=== PATIENT | female | born 1975 | race Caucasian/White ===

== ENCOUNTER 2020-07-21 16:10 | Outpatient (CLI) | payer OTHER, SELFPAY ==
--- NOTE | 2020-07-21 | XR_ITS ---
WS: [id number] EXAM: XR lumbar spine 2-3V* [id number] DATE OF EXAMINATION: 07/21/2020, 1631 hours COMPARISON: None. HISTORY: 44 years old with low back pain and sciatica for the last 3 weeks. FINDINGS: Lower thoracic and lumbar vertebrae are of normal height. There are 6 nonrib-bearing vertebrae. The v ertebrae labeled as L6 appears to be a transitional vertebrae partially sacralized on the left. There is narrowing of the disc space at L5-transitional L6 level with vacuum phenomena. Posteriorly bilate ral L5 pars interarticularis defects are demonstrated with a grade 1 anterolisthesis of L5 on transit ional L6. Other disc levels are fairly normal in appearance. All pedicles are appreciated on the AP r adiograph. No paraspinal soft tissue abnormality is seen. Slight arthritis within both SI joints. XR/XR lumbar spine 2-3V* [id number] IMPRESSION: 6 NONRIB-BEARING VERTEBRAE. VERTEBRAE LABELED L6 IS CONSIDERED A TRANSITIONA L VERTEBRAE WITH PARTIAL SACRALIZATION ON THE LEFT WITH PSEUDOARTHROSIS OF THE LEFT L6 TRANSVERSE PROCESS WITH THE LEFT S1 ALA. BILATERAL L5 PARS INTERARTICULARIS DEFECTS DEMONSTRATED WITH GRADE 1 ANTEROLIST HESIS OF L5 ON TRANSITIONAL L6 WITH DEGENERATIVE SPONDYLOSIS AND VACUUM PHENOME NON AT THIS LEVEL. NO ACUTE BONY ABNORMALITY
== END 2020-07-21 16:11 | disposition home or self-care (01) ==
LOC: RAD 16:16
PROVIDERS: PCP Nurse Practitioner Family; Visit Provider Nurse Practitioner Family
DX: M54.30 Sciatica, unspecified side (principal); M54.5 Low back pain; M47.816 Spondylosis without myelopathy or radiculopathy, lumbar region; Q76.49 Other congenital malformations of spine, not associated with scoliosis
CPT/HCPCS: 72100

== ENCOUNTER 2020-08-16 06:52 | Outpatient (CLI) | payer OTHER, SELFPAY ==
--- NOTE | 2020-08-16 | MR_ITS ---
WS: [id number] MRI LUMBAR SPINE NONCONTRAST HISTORY: BACK PAIN COMPARISON: None available. TECHNIQUE: Sagittal and axial multisequence imaging is submitted. Increase in the lumbar lordosis. L4 anterolisthesis by 4.2 mm. No fractures. Mild disc space narrowin g and desiccation at L4-5. Conus terminates normally at T12-L1. L1-L2: Normal. L2-L3: Mild ligamentum flavum hypertrophy and facet arthritis. L3-L4: Small amount of fluid in the facet joints bilaterally. No stenosis. L4-L5: Mild annular disc bulging with moderate facet and ligamentum flavum hypertrophy. Encroachment onto the posterior lateral thecal sac bilaterally due to facet disease. There is significant encroach ment and narrowing of the posterior thecal sac at the mid L4 level. Nerve roots are being compressed in the posterior thecal sac with no foraminal stenosis. L5-S1: Mild disc bulging. No stenosis. Visualized retroperitoneum is negative. MR/MR lumbar spine wo con* [id number] IMPRESSION: 1. Central canal stenosis is mild at the L4-5 level. There is a focal narrowin g of the posterior thecal sac with mild increased entrapment of the nerve roots at the L4-5 level. Posterior thecal sac entrapment is causing a mild figure 8 appearance. The entrapment of the thecal sac and nerve root encroachment is pre dominantly due to facet joint arthritis extending centrally. 2. L4 anterolisthesis by 4.2 mm with bilateral facet joint arthritis.
== END 2020-08-16 06:53 | disposition home or self-care (01) ==
LOC: RADSHAW 06:55
PROVIDERS: PCP Nurse Practitioner Family; Visit Provider Nurse Practitioner Family
DX: M54.9 Dorsalgia, unspecified (principal); M48.061 Spinal stenosis, lumbar region without neurogenic claudication; M46.96 Unspecified inflammatory spondylopathy, lumbar region
CPT/HCPCS: 72148

== ENCOUNTER 2020-09-11 12:54 | Outpatient (CLI) | payer OTHER, SELFPAY ==
--- NOTE | 2020-09-11 13:00 | XR_ITS ---
WS: [id number] LUMBAR SPINE FLEXION AND EXTENSION TECHNIQUE: 3 views of the lumbar spine: Lateral neutral, flexion, and extension views. CLINICAL INFORMATION: BACK PAIN COMPARISON: None. FINDINGS: S1 is partially lumbarized. Grade 1-2 anterolisthesis L5 on S1 measuring 13 mm in neutral. This is not significantly changed on f lexion-extension. Chronic pars defects at this level. Osteopenia. XR/XR lumbar spine f/e only [id number] IMPRESSION: Grade 1-2 anterolisthesis L5 on S1 measuring 13 mm. No significant instability. Bilateral pars defects.
== END 2020-09-11 12:55 | disposition home or self-care (01) ==
LOC: RADWPI 12:58
PROVIDERS: PCP Nurse Practitioner Family; Visit Provider Nurse Practitioner Family
DX: M54.5 Low back pain (principal)
CPT/HCPCS: 72120

== ENCOUNTER → 2020-09-27 07:58 | Outpatient (BNVA) | payer OTHER, SELFPAY | PROVIDERS: PCP Nurse Practitioner Family; Visit Provider Licensed Practical Nurse | DX: M51.17 Intervertebral disc disorders with radiculopathy, lumbosacral region (principal); M43.17 Spondylolisthesis, lumbosacral region; M48.062 Spinal stenosis, lumbar region with neurogenic claudication; M47.816 Spondylosis without myelopathy or radiculopathy, lumbar region; E66.01 Morbid (severe) obesity due to excess calories; Z68.42 Body mass index [BMI] 45.0-49.9, adult | CPT/HCPCS: 99204 ==

== ENCOUNTER 2020-10-06 08:35 | Outpatient (CLI) | payer OTHER, SELFPAY ==
--- NOTE | 2020-10-06 09:00 | IR_ITS ---
WS: [id number] Lumbar myelogram, 10/06/2020 Clinical Data: Low back pain Comparison: Lateral lumbar spine, 09/11/2020. Fluoroscopy time: 2.9 minutes. Findings: With the usual technique, a 22 gauge spinal needle was inserted into the lumbar subarachnoid space at L2-L3. The contrast material was hand injected. Approximately 12.5 mL of 240 mg/mL Omnipaque entered the lum bar subarachnoid space. No intramedullary, intradural or extradural defects could be seen. The patien t was placed into the head down position and the contrast material flowed normally into the lower tho racic subarachnoid space. Flexion, extension and neutral lateral, AP and both oblique views demonstrated no limitations of damaris on or increase in subluxation. Subluxation at L4-L5 was fixed at 1.1cm. Bilateral spondylolysis at L4 -L5 is seen. There are no compression fractures. IR/IR myelogram sp lumbar [id number] Impression: 1. Negative lumbar myelogram. 2. No change in L4-L5 spondylolisthesis of 1.1 cm on flexion or extension. 3. Negative for limitation of motion on flexion or extension.
[2020-10-06] MEDS: iohexol 240 mg/mL 50 mL Btl INTRATHECA (10:26)
--- NOTE | 2020-10-06 11:30 | CT_ITS ---
WS: [id number] CT of the lumbar spine, additional two-dimensional coronal and sagittal imaging was obtained. 10/06/20 Clinical Data: Low back pain Comparison: MRI lumbar spine, 2019. DLP: 1760.16 mGy-centimeters All CT scans at [facility] use at least one of these dose optimization techniques: automat ed exposure control; mA and/or kV adjustment per patient size (includes targeted exams where dose is matched to clinical indication); or iterative reconstruction. Findings: Contrast material from the myelogram fills the lumbar subarachnoid space. There is a 0.4 cm subluxation of L4 on L5 with degenerative disc disease at L4-L5. There is a bilateral spondylolysis at L4-L5. No intramedullary, intradural or extradural defects are seen. T12-L1: No canal stenosis, disc bulge or foraminal narrowing is seen. L1-L2: No canal stenosis, disc bulge or foraminal narrowing is seen. L2-L3: No canal stenosis, disc bulge or foraminal narrowing is seen. L3-L4: No canal stenosis, disc bulge or foraminal narrowing is seen. L4-L5: There is a bulging disc at L4-L5 with no central canal stenosis. There is moderate facet joint arthritis. L5-S1: No canal stenosis, disc bulge or foraminal narrowing is seen. CT/CT lumbar spine w con [id number] Impression: 1. 0.4 cm subluxation of L4 on L5 with degenerative disc disease at L4-L5. 2. Bulging disc at L4-L5 with no central canal stenosis but moderate facet join t arthritis.
== END 2020-10-06 08:36 | disposition home or self-care (01) ==
LOC: RADWPI 08:40
PROVIDERS: PCP Nurse Practitioner Family; Visit Provider Licensed Practical Nurse
DX: S33.140A Subluxation of L4/L5 lumbar vertebra, initial encounter (principal); X58.XXXA Exposure to other specified factors, initial encounter
CPT/HCPCS: 62304; 72120; 72132; Q9966

== ENCOUNTER 2020-10-06 21:53 | Emergency (ER) | payer OTHER, SELFPAY ==
[2020-10-06 22:04] VITALS: BP 152/95; PULSE 98; RESP 24; TEMP 36.2; O2SAT 98; BMI 44.6
--- NOTE | 2020-10-06 22:28 | CTR_ITS ---
PROCEDURE INFORMATION: Exam: CT Head Without Contrast Exam date and time: 10/06/2020 10:51 PM Age: 45 years old Clinical indication: Pain; Headache not specified; Patient HX: PT had myleogram today, [place] headache TECHNIQUE: Imaging protocol: Computed tomography of the head without contrast. Radiation optimization: All CT scans at this facility use at least one of these dose optimization techniques: automated exposure control; mA and/or kV adjustment per patient size (includes targeted exams where dose is matched to clinical indication); or iterative reconstruction. COMPARISON: No relevant prior studies available. RADIATION DOSE METRICS: Total DLP (mGy-cm): 867.86 FINDINGS: Brain: Left frontal high convexity 2.2 cm extra-axial mass with minimal mass effect on the adjacent brain parenchyma consistent with a meningioma. Cerebral ventricles: No ventriculomegaly. Bones/joints: Unremarkable. No acute fracture. Paranasal sinuses: Visualized sinuses are unremarkable. No fluid levels. Mastoid air cells: Visualized mastoid air cells are well aerated. Soft tissues: Unremarkable. CT/CT head wo con* [id number] IMPRESSION: 1. Negative for intracranial hemorrhage. 2. Left frontal high convexity 2.2 cm extra-axial mass with minimal mass effect on the adjacent brain parenchyma consistent with a meningioma. Radiation Dose CTDIVOL = (mGy): DLP = 867.86 (mGy-cm)
--- NOTE | 2020-10-06 22:37 | ED_ITS ---
HPI - Headache General: Chief Complaint: Headache Stated Complaint: lower back pain Time Seen by Provider: 10/06/20 22:14 Source: patient Mode of arrival: ambulatory Limitations: no limitations History of Present Illness: HPI Narrative: Shari is a 45-year-old female who comes in complaining of a headache. Patient states that she had a myelogram performed today at the [facility] to evaluate her chronic back pain. She states that the headache began after the myelogram and has progressively gotten worse since. She denies any fevers or chills. She does have photophobia and nausea. She states anytime she gets up her headache gets significantly worse and when she lays down and rest it improves greatly. Patient is concerned that she may have a post tap headache. Because of this and the uncontrolled pain she is come here to the hospital for relief. Patient states that she cannot get up even to walk to the bathroom without having severe pain to the point she feels like she may collapse. Patient states that she has to have something for her headache as this is intractable. Associated symptoms: Deny chest pain, confusion, diaphoresis, fever(s), lightheadedness, malaise, nausea, pre-syncope, rash, syncope or vomiting Review of Systems Const: Denies: fever(s), chills, body aches, fatigue, malaise or diaphoresis Eyes: Denies: change in vision, blurry vision, photophobia, eye discomfort, eye discharge, eye redness or yellow eyes ENMT: Denies: throat pain, odynophagia, hoarseness, swelling of lips/tongue, ear or mastoid pain, ear discharge, change in hearing or nasal discharge Card: Denies: chest pain, palpitations, irregular heart rhythm, edema, lightheadedness, syncope, pre-syncope, dyspnea on exertion or orthopnea Resp: Denies: dyspnea, productive cough, non-productive cough, wheezing, hemoptysis or chest congestion GI: Denies: abdominal pain, nausea, vomiting, hematemesis, coffee ground emesis, heartburn, diarrhea, constipation, GI cramping, hematochezia or melena : Denies: flank pain, dysuria, urinary frequency, urinary urgency or hematu pito Musc: Denies: neck pain, back pain, extremity pain, extremity swelling, joint pain, joint swelling, joint redness, joint warmth or joint stiffness Skin/Breast: Denies: rash, pruritus, erythema, skin pain or skin tenderness Neuro: Reports: headache(s); Denies: numbness in extremities, weakness in extremities, sensory changes, lack of coordination, difficulty walking, dizziness, vertigo, confusion, Slurred speech present or seizure-like activity Shola/Lymph: Denies: easy bruising, easy bleeding, petechiae, purpura or enlarged lymph nodes All/Imm: Denies: urticaria, throat swelling, tongue swelling, facial swelling or acute wheezing PFSH ED PFSH: Medical History 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 Alive Daughter Diabetes Type 1 diabetes. Age 11 Son Diabetes Type 1 diabetes. Age 17 Social History Smoking and tobacco status: former smoker Alcohol intake: never Household members: spouse and children Housing: House Marital status: service: No Current occupational status: employed Current occupation: [employer] History of recent travel: No Physical Exam Const: COMMON NORMALS: no acute distress, patient oriented x3, no limitations and alert GENERAL APPEARANCE: cooperative HENMT: COMMON NORMALS: normocephalic, atraumatic, external ears normal, EAC's normal and Normal external nose present HEAD & SCALP: normal to inspection, normocephalic and atraumatic FACE & SINUS: normal facial exam and face symmetric NOSE: Normal external nose present and Normal nares present EXTERNAL EAR: Yes external ears normal EXTERNAL AUDITORY CANAL: EAC's normal MOUTH: Normal oral and palatal mucosa present, lip normal and tongue normal Eye: COMMON NORMALS: Equal, round and reactive pupils present and conjunctivae normal GENERAL EYE: appearance normal, both eyes and all related structures ALIGNMENT: Yes alignment normal PERIORBITAL: periorbital findings normal EYELID: eyelids normal CONJUNCTIVA: Yes conjunctivae normal SCLERA: sclerae normal PUPIL: Yes Equal, round and reactive pupils present Neck/C-Spine: COMMON NORMALS: full ROM, no lymphadenopathy, supple, no meningeal signs and no JVD GENERAL: Yes normal visual inspection and Yes trachea midline Chest: COMMONS NORMALS: normal inspection of the chest and normal palpation of entire chest wall Resp: COMMON NORMALS: normal respiratory effort, No retractions, No use of accessory muscles and clear to auscultation bilaterally EFFORT & INSPECTION: Yes able to speak in complete sentences and Yes symmetric chest movement AUSCULTATION: clear to auscultation bilaterally, no crackles, no rales, no rhonchi and no wheezes Cardio: COMMON NORMALS: no JVD, regular rate, regular rhythm, S1 normal heart sound present and S2 normal heart sound present RATE: regular rate RHYTHM: regular rhythm HEART SOUNDS: S1 normal heart sound present, S2 normal heart sound present, no click, no gallops, no murmurs and no rubs GI: COMMON NORMALS: Soft to palpation and No hepatosplenomegaly present PALPATION: Yes Soft to palpation, No Tenderness to palpation present (GI), No Guarding due to palpation present (GI), No Rigid due to palpation, Yes No hepatosplenomegaly present, No Hernia present, No Palpable mass present and No Pulsatile mass present : COMMON NORMALS: Yes no CVA tenderness BLADDER/KIDNEY EXAM: Yes no CVA tenderness EXTERNAL FEMALE EXAM: No Hernia present Back/Pelvis: COMMON NORMALS: no CVA tenderness, thoracic and lumbar spine normal to inspection, no thoracic nor lumbar tenderness and thoraco-lumbar ROM normal Extremity: COMMON NORMALS: normal to inspection, full ROM, capillary refill normal, no joint enlargement, no clubbing, cyanosis or edema and no calf tenderness Neuro: COMMON NORMALS: patient oriented x3, CN's II-XII intact bilaterally, moves all extremities, no focal motor deficits and no sensory deficits noted SENSORIUM/ORIENTATION: Yes alert MENINGEAL SIGNS: Yes no meningeal signs SPEECH: speech normal Psych: COMMON NORMALS: mental status grossly normal, Normal thought process present, cooperative, normal affect, speech normal and activity/motor behavior normal SPEECH: Yes normal speech THOUGHT PROCESS: Normal thought process present Skin: COMMON NORMALS: no rashes or lesions noted, turgor normal, no jaundice, no petechiae and no mottling GENERAL SKIN EXAM: no rashes or lesions noted and turgor normal Course Vital Signs: Vital signs: Vital Signs Temperature 97.2 F L 10/06/20 22:04 Pulse Rate 69 10/07/20 02:00 Respiratory Rate 17 10/07/20 02:00 Blood Pressure 117/72 10/07/20 02:00 Pulse Oximetry 97 10/07/20 02:00 MDM - Headache MDM Narrative: Medical decision making narrative: 0045 -Case reviewed with Dr. Isaac and the on-call [employer] OPERATOR. They will come to evaluate the patient for possible blood patch. 0130 -blood patch performed by Dr. Isaac. She states the patient will need to remain flat for 1 hour and then can be discharged home. 0230 -patient is feeling better and is ready to go home. She is very appreciative of her care but does understand if her symptoms return she will need to return to the ER. Lab Data: Labs: Lab Results 10/06/20 10/06/20 10/06/20 Range/Units 22:06 22:06 22:06 WBC 5.3 (4.0-10.0) 10^3/ uL RBC 4.70 (4.1-5.3) 10^6/u L Hgb 13.6 (11.5-15.3) g/dL Hct 41.3 (37.0-47.0) % MCV 87.9 (81-99) fL MCH 28.9 (28.0-34.0) pg MCHC 32.9 (30.0-36.0) g/dL RDW 12.5 (12.1-15.1) % Plt Count 257 (130-400) 10^3/c mm MPV 10.8 H (7.4-10.4) fL Neut % (Auto) 54.8 % Lymph % (Auto) 32.1 % [place] % (Auto) 10.4 % Eos % (Auto) 1.9 % Baso % (Auto) 0.6 % Neut # (Auto) 2.91 (1.8-7.7) 10^3/u L Lymph # (Auto) 1.7 (0.8-4.8) 10^3/u L [place] # (Auto) 0.6 (0.2-0.9) 10^3/u L Eos # (Auto) 0.1 (0.0-0.8) 10^3/u L Baso # (Auto) 0.0 (0.0-0.1) 10^3/u L Nucleated RBC % (a uto) 0 % Nucleated RBCs # 0.0 /100WBC PT 12.40 (12.1-14.9) SECO NDS INR 0.90 (0.8-1.2) APTT 27.8 (23.9-36.7) SECO NDS Sodium 144 (136-145) mmol/L Potassium 3.0 L (3.5-5.1) mmol/L Chloride 105 (98-107) mmol/L Carbon Dioxide 30 H (22-29) mmol/L Anion Gap 12.0 (5-19) BUN 13 (6-20) mg/dL Creatinine 0.9 (0.5-0.9) mg/dL GFR Calculation 68.3 L (90-130) mL/min Glucose 109 (65-115) mg/dL Calculated Osmolal ity 299 H (285-295) mOsm/k g Calcium 8.6 (8.5-10.5) mg/dL Magnesium (1.7-2.3) mg/dL Total Bilirubin 0.4 (0.15-1.2) mg/dL AST 17 (0-32) U/L ALT 23 (0-33) U/L Alkaline Phosphata se 64 (35-105) IU/L Total Protein 6.1 L (6.6-8.7) g/dL Albumin 3.7 (3.5-5.2) g/dL Globulin 2.4 (1.3-4.6) g/dL Urine Color (Yellow) Urine Appearance (CLEAR) Urine pH (5-7) Ur Specific Gravit y (1.005-1.030) Urine Protein (Negative) Urine Glucose (UA) (Normal) Urine Ketones (Negative) Urine Blood (Negative) Urine Nitrate (Negative) Urine Bilirubin (Negative) Prot Sulfosalicyli c Acd (Negative) Urine Urobilinogen (Negative) mg/dL Ur Leukocyte Isela ase (Negative) 10/06/20 10/07/20 Range/Units 22:06 00:00 WBC (4.0-10.0) 10^3/ uL RBC (4.1-5.3) 10^6/u L Hgb (11.5-15.3) g/dL Hct (37.0-47.0) % MCV (81-99) fL MCH (28.0-34.0) pg MCHC (30.0-36.0) g/dL RDW (12.1-15.1) % Plt Count (130-400) 10^3/c mm MPV (7.4-10.4) fL Neut % (Auto) % Lymph % (Auto) % [place] % (Auto) % Eos % (Auto) % Baso % (Auto) % Neut # (Auto) (1.8-7.7) 10^3/u L Lymph # (Auto) (0.8-4.8) 10^3/u L [place] # (Auto) (0.2-0.9) 10^3/u L Eos # (Auto) (0.0-0.8) 10^3/u L Baso # (Auto) (0.0-0.1) 10^3/u L Nucleated RBC % (a uto) % Nucleated RBCs # /100WBC PT (12.1-14.9) SECO NDS INR (0.8-1.2) APTT (23.9-36.7) SECO NDS Sodium (136-145) mmol/L Potassium (3.5-5.1) mmol/L Chloride (98-107) mmol/L Carbon Dioxide (22-29) mmol/L Anion Gap (5-19) BUN (6-20) mg/dL Creatinine (0.5-0.9) mg/dL GFR Calculation (90-130) mL/min Glucose (65-115) mg/dL Calculated Osmolal ity (285-295) mOsm/k g Calcium (8.5-10.5) mg/dL Magnesium 2.1 (1.7-2.3) mg/dL Total Bilirubin (0.15-1.2) mg/dL AST (0-32) U/L ALT (0-33) U/L Alkaline Phosphata se (35-105) IU/L Total Protein (6.6-8.7) g/dL Albumin (3.5-5.2) g/dL Globulin (1.3-4.6) g/dL Urine Color Yellow (Yellow) Urine Appearance Clear (CLEAR) Urine pH 8 H (5-7) Ur Specific Gravit y 1.005 (1.005-1.030) Urine Protein Neg (Negative) Urine Glucose (UA) Norm (Normal) Urine Ketones Negative (Negative) Urine Blood Neg (Negative) Urine Nitrate Negative (Negative) Urine Bilirubin Neg (Negative) Prot Sulfosalicyli c Acd Negative (Negative) Urine Urobilinogen Norm (Negative) mg/dL Ur Leukocyte Isela ase Negative (Negative) Discharge Plan Discharge Patient Disposition: Home Clinical Impression: Post lumbar puncture headache Condition: Stable Prescriptions: No Action levothyroxine 125 mcg capsule 125 mcg PO DAILY RF: 0 hydrochlorothiazide 12.5 mg tablet 12.5 mg PO DAILY RF: 0 furosemide 40 mg tablet 40 mg PO DAILY RF: 0 Discharge Orders: Discharge Order (Routine); Ordered 10/07/20 Ordered By: Maria R Heredia Referrals: Sharon Clements APN [Primary Care Provider] - 1-3 days Discharge Diet: Advance as tolerated Discharge Activity: Increase activity as tolerated Patient Instructions: Lumbar Puncture (ED), Acute Headache (ED) Activity Restrictions/Additional Instructions: Please return to the ER immediately for any of the signs or symptoms listed on your discharge instruction sheets, worsening/changing of your symptoms, you are not getting better as quickly as expected, or for ANY other cause or concerns. Coding Level of Care Code ED Taper Operator for Philomena Fwd Exam Comprehensive
[2020-10-06 23:00] VITALS: RESP 18; O2SAT 98
[2020-10-06] MEDS: HYDROmorphone 1 mg/mL INJ 1 mL 0.5 MG IVP (23:00)
[2020-10-06] MEDS: sodium chloride 0.9% 1,000 ML 999 ML IV (23:01)
[2020-10-06] MEDS: ondansetron 2 mg/ML SDV 2 mL 4 MG IVP (23:03)
[2020-10-06 23:11] VITALS: BP 147/92; PULSE 83; RESP 16; O2SAT 96
[2020-10-06 23:19] LABS: Basophils % 0.6 %; Eosinophils # 0.1 10^3/uL (0.0-0.8); Eosinophils % 1.9 %; Hematocrit 41.3 % (37.0-47.0); Hemoglobin 13.6 g/dL (11.5-15.3); Lymphocytes # 1.7 10^3/uL (0.8-4.8); Lymphocytes % 32.1 %; Mean Corpuscular HGB Conc 32.9 g/dL (30.0-36.0); Mean Corpuscular Hemoglobin 28.9 pg (28.0-34.0); Mean Corpuscular Volume 87.9 fL (81-99); Mean Platelet Volume 10.8 fL (7.4-10.4); Monocytes # 0.6 10^3/uL (0.2-0.9); Monocytes % 10.4 %; Neutrophils # 2.91 10^3/uL (1.8-7.7); Neutrophils % 54.8 %; Nucleated Red Blood Cells % 0 %; Platelet Count 257 10^3/cmm (130-400); Red Cell Distribution Width 12.5 % (12.1-15.1); White Blood Count 5.3 10^3/uL (4.0-10.0)
[2020-10-06 23:32] LABS: Partial Thromboplastin Time 27.8 SECONDS (23.9-36.7)
[2020-10-06 23:39] LABS: Alanine Aminotransferase 23 U/L (0-33); Albumin Level 3.7 g/dL (3.5-5.2); Alkaline Phosphatase 64 IU/L (35-105); Aspartate Amino Transferase 17 U/L (0-32); Blood Urea Nitrogen 13 mg/dL (6-20); Calcium 8.6 mg/dL (8.5-10.5); Carbon Dioxide 30 mmol/L (22-29); Chloride 105 mmol/L (98-107); Globulin 2.4 g/dL (1.3-4.6); Glomerular Filtration Rate 68.3 mL/min (90-130); Glucose 109 mg/dL (65-115); Osmolality Calculated 299 mOsm/kg (285-295); Sodium 144 mmol/L (136-145); Total Bilirubin 0.4 mg/dL (0.15-1.2); Total Protein 6.1 g/dL (6.6-8.7)
[2020-10-07] VITALS: BP 144/103; PULSE 73; RESP 17; O2SAT 98
--- NOTE | 2020-10-07 00:02 | PC.NURSE ---
Patient states her back pain is now from where they injected the dye in her procedure up to her neck.
[2020-10-07 00:07] LABS: Add Urine Microscopic? NO
[2020-10-07 00:17] LABS: Magnesium 2.1 mg/dL (1.7-2.3)
[2020-10-07 00:22] LABS: Bilirubin Urine Neg (Negative); Blood Urine Neg (Negative); Glucose Urine UA Norm (Normal); Ketones Urine Negative (Negative); Leukocyte Esterase Urine Negative (Negative); Nitrate Urine Negative (Negative); Protein Urine Neg (Negative); Specific Gravity, Urine 1.005 (1.005-1.030); Sulfosalicylic Acid Urine Negative (Negative); Urine Appearance Clear (CLEAR); Urine Color Yellow (Yellow); Urobilinogen Urine Norm (Negative); pH Urine 8 (5-7)
[2020-10-07] MEDS: potassium chloride ER 10 mEq Tablet 40 MEQ PO (00:42)
--- NOTE | 2020-10-07 01:33 | P.ANESASSM_ITS ---
Pre-Anesthetic Assessment Pre-Anesthetic Assessment: Height/Weight: Height 1.63 m Weight 117.934 kg Temp Pulse Resp BP Pulse Ox 97.2 F L 73 17 144/103 98 10/06/20 22:04 10/07/20 00:00 10/07/20 00:00 10/07/20 00:00 10/07/20 00:00 Preop Diagnosis: PDPH Proposed Procedure: Epidural blood patch Exam: Pre-Anes Outpt Exam: alert, oriented x 3, clear to auscultation bilaterally and regular rate & rhythm History/ROS: No significant history except as noted Metabolic: Metabolic: Morbid obesity Musc/skel: Musc/skel: Lower Back Pain Anesthetic Plan: ASA status: 2 Other: blood patch Risk of > 500 ml blood loss (7ml/kg in children): No PFSH Anesthesia PFSH: Medical History 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 Alive Daughter Diabetes Type 1 diabetes. Age 11 Son Diabetes Type 1 diabetes. Age 17 Social History Smoking and tobacco status: former smoker Alcohol intake: never Household members: spouse and children Housing: House Marital status: service: No Current occupational status: employed Current occupation: [employer] History of recent travel: No Data Anesthesia CBC & Chem 7: 10/06/20 22:06 10/06/20 22:06 Other Labs: Laboratory Results - last 48 hr 10/06/20 10/06/20 10/06/20 22:06 22:06 22:06 WBC 5.3 RBC 4.70 Hgb 13.6 Hct 41.3 MCV 87.9 MCH 28.9 MCHC 32.9 RDW 12.5 Plt Count 257 MPV 10.8 H Neut % (Auto) 54.8 Lymph % (Auto) 32.1 [place] % (Auto) 10.4 Eos % (Auto) 1.9 Baso % (Auto) 0.6 Neut # (Auto) 2.91 Lymph # (Auto) 1.7 [place] # (Auto) 0.6 Eos # (Auto) 0.1 Baso # (Auto) 0.0 Nucleated RBC % (auto) 0 Nucleated RBCs # 0.0 PT 12.40 INR 0.90 APTT 27.8 Sodium 144 Potassium 3.0 L Chloride 105 Carbon Dioxide 30 H Anion Gap 12.0 BUN 13 Creatinine 0.9 GFR Calculation 68.3 L Glucose 109 Calculated Osmolality 299 H Calcium 8.6 Magnesium Total Bilirubin 0.4 AST 17 ALT 23 Alkaline Phosphatase 64 Total Protein 6.1 L Albumin 3.7 Globulin 2.4 Urine Color Urine Appearance Urine pH Ur Specific [place] Urine Protein Urine Glucose (UA) Urine Ketones Urine Blood Urine Nitrate Urine Bilirubin Prot Sulfosalicylic Acd Urine Urobilinogen Ur Leukocyte Esterase 10/06/20 10/07/20 22:06 00:00 WBC RBC Hgb Hct MCV MCH MCHC RDW Plt Count MPV Neut % (Auto) Lymph % (Auto) [place] % (Auto) Eos % (Auto) Baso % (Auto) Neut # (Auto) Lymph # (Auto) [place] # (Auto) Eos # (Auto) Baso # (Auto) Nucleated RBC % (auto) Nucleated RBCs # PT INR APTT Sodium Potassium Chloride Carbon Dioxide Anion Gap BUN Creatinine GFR Calculation Glucose Calculated Osmolality Calcium Magnesium 2.1 Total Bilirubin AST ALT Alkaline Phosphatase Total Protein Albumin Globulin Urine Color Yellow Urine Appearance Clear Urine pH 8 H Ur Specific [place] 1.005 Urine Protein Neg Urine Glucose (UA) Norm Urine Ketones Negative Urine Blood Neg Urine Nitrate Negative Urine Bilirubin Neg Prot Sulfosalicylic Acd Negative Urine Urobilinogen Norm Ur Leukocyte Esterase Negative Cardiac Studies: No Data to Display
--- NOTE | 2020-10-07 01:34 | ANES.PROC ---
Anesthesia Procedures Procedure/Date: 10/07/20 Epidural: Time Out Performed: Yes Consents Signed: Procedure Consent Lumbar Level: L2-L3 Epidural position: sitting Epidural procedure: sterile prep of area, 1% lidocaine to numb the area and 18 g needle Additional Comments: 20 cc of blood drawn in sterile fashion by marj cuellar crna from R L AC vein and injected into L2/3 interspace where previous puncture brizuela had been visualized. Patient tolerated procedure well Other Information: Asked to evaluate patient for emergency postdural puncture headache which started this morning after her myelogram. Patient had classic symptoms of PDPH despite only having received the procedure this morning. Patient was informed of risks including, possibility of infection, second postdural puncture with large gauge needle, failure of procedure to resolve her headache. Patient declined waiting for pain management to perform procedure on friday using fluoroscopy which would allow for more accurate needle placement and decrease the risk of a second postdural puncture occurring.
[2020-10-07 02:00] VITALS: BP 117/72; PULSE 69; RESP 17; O2SAT 97
[2020-10-07 02:30] VITALS: BP 131/78; PULSE 78; RESP 17; O2SAT 96
[2020-10-07 03:18] VITALS: BP 144/82; PULSE 73; RESP 17; TEMP 36.2; O2SAT 98
== END 2020-10-07 03:18 | disposition home or self-care (01) ==
PROVIDERS: Emergency Provider Emergency Medicine; PCP Nurse Practitioner Family
DX: G97.1 Other reaction to spinal and lumbar puncture (principal); Y84.4 Aspiration of fluid as the cause of abnormal reaction of the patient, or of later complication, without mention of misadventure at the time of the procedure; Z87.891 Personal history of nicotine dependence
CPT/HCPCS: 12345; 62273; 70450; 80053; 81003; 83735; 85025; 85610; 85730; 96361; 96374; 96375; 99283; 99284; J1170; J2405; J7030

== ENCOUNTER → 2020-10-10 10:56 | Outpatient (BNVA) | payer OTHER, SELFPAY | PROVIDERS: PCP Nurse Practitioner Family; Visit Provider Licensed Practical Nurse | DX: M51.17 Intervertebral disc disorders with radiculopathy, lumbosacral region (principal); G97.1 Other reaction to spinal and lumbar puncture; M48.062 Spinal stenosis, lumbar region with neurogenic claudication; M43.17 Spondylolisthesis, lumbosacral region; M47.816 Spondylosis without myelopathy or radiculopathy, lumbar region; E66.01 Morbid (severe) obesity due to excess calories; Z68.42 Body mass index [BMI] 45.0-49.9, adult | CPT/HCPCS: 96372; 99213; J1885 ==

== ENCOUNTER → 2020-10-17 08:03 | Outpatient (BNVA) | payer OTHER, SELFPAY | PROVIDERS: PCP Nurse Practitioner Family; Visit Provider Licensed Practical Nurse | DX: M43.17 Spondylolisthesis, lumbosacral region (principal); M51.17 Intervertebral disc disorders with radiculopathy, lumbosacral region; G97.1 Other reaction to spinal and lumbar puncture; E66.01 Morbid (severe) obesity due to excess calories; Z68.42 Body mass index [BMI] 45.0-49.9, adult | CPT/HCPCS: 99213 ==

== ENCOUNTER → 2020-12-18 08:34 | Outpatient (BNVA) | payer OTHER, SELFPAY | PROVIDERS: PCP Nurse Practitioner Family; Referring Provider Licensed Practical Nurse; Visit Provider Anesthesiology Pain Medicine | DX: M51.36 Other intervertebral disc degeneration, lumbar region (principal); M43.10 Spondylolisthesis, site unspecified; M47.816 Spondylosis without myelopathy or radiculopathy, lumbar region | CPT/HCPCS: 99205 ==

== ENCOUNTER → 2021-01-26 10:20 | Outpatient (BNVA) | payer OTHER, SELFPAY | PROVIDERS: PCP Nurse Practitioner Family; Visit Provider Anesthesiology Pain Medicine | DX: M54.41 Lumbago with sciatica, right side (principal); M51.36 Other intervertebral disc degeneration, lumbar region; M54.9 Dorsalgia, unspecified; M47.816 Spondylosis without myelopathy or radiculopathy, lumbar region; M43.10 Spondylolisthesis, site unspecified | CPT/HCPCS: 99215 ==

== ENCOUNTER → 2021-02-06 13:29 | Outpatient (BNVA) | payer OTHER, SELFPAY | PROVIDERS: PCP Nurse Practitioner Family; Visit Provider Anesthesiology Pain Medicine | DX: M47.816 Spondylosis without myelopathy or radiculopathy, lumbar region (principal); M54.9 Dorsalgia, unspecified; Z79.891 Long term (current) use of opiate analgesic | CPT/HCPCS: 64493; 64494; 64495; J1040; J3490 ==

== ENCOUNTER → 2022-04-16 08:30 | Outpatient (BNVA) | payer OTHER, SELFPAY | PROVIDERS: PCP Nurse Practitioner Family; Visit Provider Anesthesiology Pain Medicine | DX: M47.816 Spondylosis without myelopathy or radiculopathy, lumbar region (principal); M51.36 Other intervertebral disc degeneration, lumbar region; M43.16 Spondylolisthesis, lumbar region; Z87.891 Personal history of nicotine dependence; Z79.891 Long term (current) use of opiate analgesic; M79.604 Pain in right leg | CPT/HCPCS: 20553; 99214; J1030; J3490 ==

== ENCOUNTER → 2023-04-03 09:53 | Outpatient (BNVA) | payer OTHER, SELFPAY | PROVIDERS: PCP Nurse Practitioner Family; Visit Provider Internal Medicine | DX: R42 Dizziness and giddiness (principal) | CPT/HCPCS: 93242 ==

== ENCOUNTER 2023-04-04 14:42 | Outpatient (CLI) | payer OTHER, SELFPAY ==
--- NOTE | 2023-04-04 15:14 | MM_ITS ---
WS: [id number] BILATERAL 3D TOMOSYNTHESIS DIGITAL SCREENING MAMMOGRAPHY WITH CAD CLINICAL INFORMATION: SCREEN HISTORY: Screening mammogram. No current complaints. COMPARISON: None. TECHNIQUE: Bilateral CC and MLO views. FINDINGS: Scattered fibroglandular densities bilaterally. No suspicious focal mass, asymmetry, calcifications, or architectural distortion. No evidence of malignancy. MM/[id number] IMPRESSION: BI-RADS: 1-Negative FOLLOW UP: 1 Year Follow-up Recommend return to annual screening mammography.
== END 2023-04-04 14:43 | disposition home or self-care (01) ==
LOC: RAD 14:45
PROVIDERS: PCP Nurse Practitioner Family; Visit Provider Nurse Practitioner Family
DX: Z12.31 Encounter for screening mammogram for malignant neoplasm of breast (principal)
CPT/HCPCS: 77063; 77067